=== PATIENT | female | born 1995 | race Caucasian/White ===

== ENCOUNTER 2023-10-06 11:46 | Emergency (ER) | payer OTHER, SELFPAY ==
[2023-10-06 12:13] VITALS: BP 136/76; PULSE 84; RESP 16; TEMP 36.2; O2SAT 97; BMI 50.2
--- NOTE | 2023-10-06 12:15 | ED_ITS ---
HPI - General Adult General Chief complaint: Allergic Reaction Stated complaint: allergic reaction to antibiotic Time Seen by Provider: 10/06/23 13:24 Source: patient Mode of arrival: ambulatory Limitations: no limitations History of Present Illness ED Provider: MARY ELI narrative: 28 yo female no sig PMH not on medications other than recent amoxicillin for toothache starting Thursday since then vomited x 1, palpitations no rash or swelling but felt itchy. Has never head reaction before. Notes she has dentist appointment . Takes a lot of jorge a HOLLIS complaint: palpitations Onset (ago): day(s) (Thursday) Radiation: non-radiation Severity: moderate Pain Consistency: intermittent Relieving factors: none Exacerbating factors: other (chewing and eating) Associated symptoms: other (n/v x 1, palpitations) Treatments prior to arrival: none Related Data Previous Rx's ?Medication ?Instructions ?Recorded clindamycin HCl 300 mg capsule 300 mg PO TID 5 days #15 caps 10/06/23 tramadol 50 mg tablet 50 mg PO Q8H PRN pain #14 tabs 10/06/23 Allergies Allergy/AdvReac Type Severity Reaction Status Date / Time No Known Allergies Allergy Verified 10/06/23 12:14 Review of Systems 2 Review of Systems: Constitutional : No Fever, No Chills ENT/Mouth : No swallowing difficulty, no change in voice, positive dental pain, positive jaw pain, no facial swelling Eyes: No Eye Pain, No Swelling Cardiovascular : No Chest Pain, No SOB, pos palpitations Respiratory : No Cough, No Sputum Gastrointestinal : No Nausea, pos Vomiting, No Diarrhea Genitourinary : No Dysuria Musculoskeletal : No Myalgias Skin : No rash Neuro : No Weakness, No Numbness, No Headache PMFSH Past Medical History Attestation statement: The following information was validated with the patient. Source: old records reviewed Medical History No pertinent past medical history Social History Social History (Updated 10/06/23 @ 13:46 by Sabiha Carrizales DO) Patient Tobacco Use Status: Never used Tobacco Physical Exam ED Vital Signs: Vital Signs - 24 hr 10/06/23 12:13 Temperature 97.1 F Pulse Rate 84 Respiratory Rate 16 Blood Pressure 136/76 Pulse Oximetry 97 Oxygen Delivery Method Room Air BMI result Body Mass Index 50.2 Appearance: Alert. Oriented X3. No acute distress. Eyes: Pupils equal, round and reactive to light. ENT: Pharynx normal. no trismus old decay molar x 2 upper but no abscess or facial swelling Neck: Normal inspection. Neck supple. CVS: Normal heart rate and rhythm. Pulses normal. Respiratory: No respiratory distress. Breath sounds normal. Abdomen: Soft and nontender. Skin: Skin warm and dry. Normal skin color. Normal skin turgor. Extremities: No lower extremity edema. No calf ttp Neuro: Oriented X 3. No motor deficit. No sensory deficit. Course Course Course Narrative: RME performed by Zoe Kimbrough PA-C. Patient is a 28 year old assigned female at presenting to the emergency department with a possible allergic reaction to Amoxicillin. Patient states that she was given Amoxicillin for a dental abscess from [employer] and now she is having palpitations. Patient states that she is concerned she is having an allergic reaction to the medicine. Detailed physical exam and review of systems are deferred to the lithographic press operator apprentice. EKG and labs ordered. Patient placed back in the waiting room pending room availability and results. Medical Decision Making Medical Decision Making [facility] Narrative: 28 yo female with recent amoxicillin abx for dental infection now here with c/o palpitations feeling itchy skin anxiety and vomited x 1 at this time will change and start on clindamycin has no CP, PERC negative, EKG reassuring, VS and labs reassuring - basic labs and type and screen, pain medications and change of antibiotics. Differential Diagnosis Differential Diagnoses: The differential diagnosis associated with the presentation includes adverse reaction, anxiety Admission/Observation Consideration of admission/observation: Escalation of care including admission/observation considered not toxic perc negative no signs of angioedema stable for DC Lab Data [facility] Lab Attestation statement: I reviewed the patient's lab results. 10/06/23 12:48 10/06/23 12:48 Labs: Lab Results 10/06/23 Range/Units 12:48 WBC 12.1 H (4.8-10.8) X10*3/uL RBC 4.81 (4.20-5.50) X10*6/uL Hgb 12.8 (12.0-16.0) g/dl Hct 39.2 (37.0-47.0) % MCV 81.5 (80.0-98.0) fL MCH 26.6 L (27.0-33.0) pg MCHC 32.7 (31.0-35.0) g/dl RDW 14.8 (11.0-16.0) % Plt Count 378 (160-400) X10*3/uL MPV 9.1 L (9.4-12.3) fL Immature Gran % (Auto) 0.3 (0.0-0.4) % Neut % (Auto) 69.0 (45-73) % Lymph % (Auto) 24.7 (20-40) % [place] % (Auto) 5.1 (2-11) % Eos % (Auto) 0.7 (0-4) % Baso % (Auto) 0.2 (0-2) % Lymph # (Auto) 3.0 (1.2-4.9) X10*3/uL [place] # (Auto) 0.6 (0.1-1.2) X10*3/uL Eos # (Auto) 0.1 (0.0-0.4) X10*3/uL Baso # (Auto) 0.0 (0.0-0.2) X10*3/uL Abs Immat Gran (auto) 0.04 H (0.00-0.03) X10*3/uL Absolute Neuts (auto) 8.3 (2.0-8.3) x10*3/uL Absolute Nucleated RBC 0.000 (0.0-0.012) X10*3/uL Nucleated RBC % (auto) 0.0 (0.0-0.2) /100WBC Sodium 140 (135-145) mmol/L Potassium 3.7 (3.3-5.1) mmol/L Chloride 104 (96-108) mmol/L Carbon Dioxide 26 (22-29) mmol/L Anion Gap 14 (12-20) BUN 8 L (9-16) mg/dL Creatinine 0.61 (0.5-1.4) mg/dL Estim Creat Clear Calc 163.6 Estimated GFR > 60 Random Glucose 99 (60-115) mg/dL Calcium 9.9 (8.4-10.2) mg/dL Total Bilirubin 0.3 (0.0-1.0) mg/dL AST 21 (5-31) U/L ALT 28 (0-31) U/L Alkaline Phosphatase 82 (39-117) U/L Total Protein 7.9 (6.5-8.0) g/dL Albumin 4.3 (3.5-5.0) g/dL TSH 0.69 (0.32-4.0) uIU/mL Beta HCG, Quant < 2 mIU/mL Independent Interpretation I performed an independent interpretation of an: EKG Interpretation: Rate: 78 Rhythm: NSR [place]: normal Normal P waves. Normal ABDULLAHI. Normal QRS complex. ST T wave : inverted t waves III and V1, no LUNA qTC: 440 prior studies: no acute ischemia The study has been interpreted contemporaneously by me. . Prescription Management I considered prescription management with: Pain Medication, Antibiotic and Other Discharge Plan Discharge Clinical Impression: Heart palpitations Adverse reaction to drug Qualifiers: Encounter type: initial encounter Qualified Code(s): T50.905A - Adverse effect of unspecified drugs, medicaments and biological substances, initial encounter Patient Disposition: Home, Self-Care Instructions: Heart Palpitations (ED) Additional Instructions: stop amoxicillin follow up with dentist as planned return for any worsening symptoms or concerns. decrease excedrin intake Prescriptions: New clindamycin HCl 300 mg capsule 300 mg PO TID 5 Days Qty: 15 0RF tramadol 50 mg tablet 50 mg PO Q8H PRN (Reason: pain) Qty: 14 0RF Print Language: Luxembourger
--- NOTE | 2023-10-06 12:16 | ECG_ITS ---
Test Reason : PALPITATIONS Blood Pressure : / mmHG Vent. Rate : 078 BPM Atrial Rate : 078 BPM P-R Int : 140 ms QRS Dur : 088 ms QT Int : 386 ms P-R-T Axes : 023 008 -03 degrees QTc Int : 440 ms Normal sinus rhythm Normal ECG No previous ECGs available Referred By: Zoe Kimbrough Electronically Signed By:SUSIE LAWSON
[2023-10-06 12:52] LABS: MANUAL DIFF FLAG NO
[2023-10-06 13:08] LABS: Basophils Percent Auto 0.2 % (0-2); Eosinophils Absolute Auto 0.1 X10*3/uL (0.0-0.4); Eosinophils Percent Auto 0.7 % (0-4); Hematocrit 39.2 % (37.0-47.0); Hemoglobin 12.8 g/dl (12.0-16.0); Imm Gran Abs Auto 0.04 X10*3/uL (0.00-0.03); Imm Gran Pct Auto 0.3 % (0.0-0.4); Lymphocytes Percent Auto 24.7 % (20-40); Mean Corpuscular HGB Conc 32.7 g/dl (31.0-35.0); Mean Corpuscular Hemoglobin 26.6 pg (27.0-33.0); Mean Corpuscular Volume 81.5 fL (80.0-98.0); Mean Platelet Volume 9.1 fL (9.4-12.3); Monocytes Absolute Auto 0.6 X10*3/uL (0.1-1.2); Monocytes Percent Auto 5.1 % (2-11); Neutrophils Absolute Auto 8.3 x10*3/uL (2.0-8.3); Platelet Count 378 X10*3/uL (160-400); Red Blood Count 4.81 X10*6/uL (4.20-5.50); Red Cell Distribution Width 14.8 % (11.0-16.0); White Blood Count 12.1 X10*3/uL (4.8-10.8)
[2023-10-06 13:14] LABS: Alanine Aminotransferase 28 U/L (0-31); Albumin Level 4.3 g/dL (3.5-5.0); Alkaline Phosphatase 82 U/L (39-117); Anion Gap 14 (12-20); Aspartate Amino Transferase 21 U/L (5-31); Bilirubin Total 0.3 mg/dL (0.0-1.0); Blood Urea Nitrogen 8 mg/dL (9-16); Calcium 9.9 mg/dL (8.4-10.2); Carbon Dioxide 26 mmol/L (22-29); Chloride 104 mmol/L (96-108); Creatinine Clr Calc Pharmacy 163.6; Estimated Glomerular Filt Rate > 60; Glucose Random 99 mg/dL (60-115); Potassium 3.7 mmol/L (3.3-5.1); Sodium 140 mmol/L (135-145); Total Protein 7.9 g/dL (6.5-8.0)
[2023-10-06 13:32] LABS: HCG Quantitative < 2 mIU/mL; TSH reflex Free T4 0.69 uIU/mL (0.32-4.0)
[2023-10-06 13:49] VITALS: BP 139/96; PULSE 68; RESP 18; TEMP 37.2; O2SAT 98
== END 2023-10-06 13:50 | disposition home or self-care (01) ==
PROVIDERS: Physician Assistant Medical; Emergency Provider Emergency Medicine; PCP Family Medicine
DX: T50.905A Adverse effect of unspecified drugs, medicaments and biological substances, initial encounter (principal); X58.XXXA Exposure to other specified factors, initial encounter; Y92.9 Unspecified place or not applicable; R11.10 Vomiting, unspecified; R00.2 Palpitations
CPT/HCPCS: 36415; 80053; 84443; 84702; 85025; 93005; 99283; 99284

== ENCOUNTER → 2023-10-06 12:16 | Outpatient (BNV) | payer OTHER, SELFPAY | PROVIDERS: Emergency Provider Emergency Medicine; PCP Family Medicine; Visit Provider Internal Medicine | DX: R00.2 Palpitations (principal) | CPT/HCPCS: 93010 ==